=== PATIENT | male | born 1990 | race Two or more races ===

== ENCOUNTER 2020-04-13 09:43 | Emergency (ER) | payer OTHER ==
[~2020-04-13] VITALS: Ht 167.6 cm; Wt 65.8 kg
--- NOTE | 2020-04-13 09:55 | NUR ---
bibra 39. with c/o epigastric pain of 10/10. alert and oriented x4. able to follow directions. n/v x1 this morning. waiting for md zamorano. v/s stable. will continue to monitor
--- NOTE | 2020-04-13 10:00 | NUR ---
iv line established. blood drawn and sent to lab
--- NOTE | 2020-04-13 10:10 | NUR ---
seen and evaluated by mD with new orders noted
[2020-04-13] MEDS ORDERED: MAG HYDROX/AL HYDROX/SIMETH 30 ML UDC ONE (10:18)
[2020-04-13] MEDS ORDERED: PANTOPRAZOLE 40 MG TABLET.DR PO ONE ×2 (10:19→10:30)
[2020-04-13] MEDS ORDERED: LIDOCAINE 2% JEL UROJET 10 ML MM ONE (10:19)
[2020-04-13 10:22] LABS: BASOPHILS % (AUTO) 0.5 % (0.0-2.0); EOSINOPHILS % (AUTO) 1.8 % (0.0-6.0); HEMATOCRIT 49 % (39-51); HEMOGLOBIN 16.8 g/dL (13.5-17.5); LYMPHOCYTES # (AUTO) 1.9 /CMM (0.8-4.8); MEAN CORPUSCULAR HGB CONC 34 g/dl (31.0-36.0); MEAN CORPUSCULAR VOLUME 88 fL (80-96); MONOCYTES # (AUTO) 0.6 /CMM (0.1-1.30); MONOCYTES % (AUTO) 7.6 % (2.0-12.0); NEUTROPHILS # (AUTO) 5.2 /CMM (1.8-8.9); NEUTROPHILS % (AUTO) 66.1 % (43.0-81.0); PLATELET COUNT (AUTO) 232 /CMM (150-450); RED BLOOD CELL COUNT(AUTO) 5.59 MIL/uL (4.5-6.0); WHITE BLOOD COUNT (AUTO) 7.9 K/uL (4.3-11.0)
[2020-04-13] MEDS ORDERED: LIDOCAINE VISCOUS 2% UD 15 ML UDC ONE (10:23)
[2020-04-13] MEDS ORDERED: LIDOCAINE VISCOUS 2% UD 15 ML UDC MM ONE (10:30)
[2020-04-13] MEDS ORDERED: MAG HYDROX/AL HYDROX/SIMETH 30 ML UDC PO ONE (10:30)
[2020-04-13 10:31] LABS: CALCIUM, SERUM 8.8 mg/dL (8.5-10.1); CREATININE 1.3 mg/dL (0.6-1.3); POTASSIUM 3.7 mmol/L (3.5-5.1)
[2020-04-13 10:37] LABS: ALBUMIN 4.2 g/dL (3.4-5.0); BILIRUBIN,DIRECT 0.3 mg/dL (0.0-0.2); BILIRUBIN,TOTAL 1.2 mg/dL (0.2-1.0); TOTAL PROTEIN, SERUM 7.5 g/dL (6.4-8.2)
[2020-04-13] MEDS ORDERED: HYDROCODONE/APAP 5/325MG TABLET PO ONE (11:00)
[2020-04-13 11:36] VITALS: BP 134/87
== END 2020-04-13 11:49 | disposition home or self-care (01) ==
LOC: ER 09:48
DX: K80.50 Calculus of bile duct without cholangitis or cholecystitis without obstruction (principal); M54.2 Cervicalgia
CPT/HCPCS: 36415; 76705-TC; 80048-TC; 80076-TC; 83690-TC; 85025-TC; J3490